=== PATIENT | female | born 2000 | race Caucasian/White ===

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

== ENCOUNTER 2020-07-23 15:24 | Emergency (ER) | payer OTHER, MEDICAID ==
[2020-07-23] MEDS ORDERED: ACETAMINOPHEN 325 MG TABLET PO STA (15:43)
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
[2020-07-23 16:46] VITALS: BP 125/86
== END 2020-07-23 16:46 | disposition home or self-care (01) ==
LOC: ED 15:24
DX: S09.90XA Unspecified injury of head, initial encounter (principal); Y00.XXXA Assault by blunt object, initial encounter; Y99.0 Civilian activity done for income or pay
CPT/HCPCS: 1040M; 70450; 99284; A9270